=== PATIENT | female | born 1945 ===

== ENCOUNTER → 2016-08-22 | Outpatient (CLI) | payer OTHER ==
[~2016-08-22] VITALS: Ht 154.9 cm; Wt 63.0 kg
[~2016-08-22] MED LIST: ASPIR 8181 MG PO; HYDROCHLOROTHIA25 M2 PO; KLOR-CON 1010 MEQ PO; NEXIUM40 MG PO; TOPROL XL25 MG PO; VITAMIN D1000 UNI1 PO
--- NOTE | ~2016-08-22 | S ---
[facility] [place] [address] SURGICAL PATH RPT PROCEDURE Name: ODALYS LYN Room #: REG ZAKIA Fernando.Michael.#: [id number] Admission: 08/22/16 Date of : 47 Discharge: Report #: [id number] Path Case #: [id number] PATHOLOGY REPORT COLLECTION DATE: 08/22/2016 RECEIVED DATE: 08/22/2016 SUBMITTING PHYS: Dr. Shun Barker OTHER PHYS: SPECIMEN(S) RECEIVED: A.Transverse colon polyp * * * * * * * * * * * * FINAL DIAGNOSIS: Polyp, transverse colon polyp, endoscopic biopsy: - Minute hyperplastic polyp along with a lymphoid aggregate. - Negative for dysplasia or malignancy. (IUV:chandni; 08/24/2016) PATHOLOGIST: Deisy Leonard M.D. REPORT ELECTRONICALLY SIGNED BY: Deisy Leonard M.D. DATE/TIME: 08/24/2016 15:24 * * * * * * * * * * * * GROSS PATHOLOGY: Received in formalin labeled "Odalys Lyn, transverse colon polyp," are 3 segments of walker soft tissue measuring 0.8 x 0.2 x 0.2 cm in aggregate dimensions and ranging from 0.1 to 0.4 cm in maximum dimension. The specimen is submitted entirely in cassette A1. (NICOLÁS; 08/23/2016) CLINICAL HISTORY: Diverticula, polyp, screening INITIAL CPT CODE(S): A; 40190 Professional services performed by [facility] at [facility] [address] [place] [address] Technical services performed by [facility] at [address] [place] [id number]. [facility] [address] [place] [address] SURGICAL PATH RPT PROCEDURE Name: ODALYS LYN Room #: REG MARTIN Jiang#: [id number] Admission: 08/22/16 Date of : 47 Discharge: Report #: [id number] Path Case #: [id number] [facility] [address] PHONE: [phone] DIRECTOR: Mark Ramirez M.D. * * * END OF REPORT * * *
== END | disposition home or self-care (01) ==
LOC: GI 08-02 08:28
DX: Z12.11 Encounter for screening for malignant neoplasm of colon (principal); D12.3 Benign neoplasm of transverse colon; K57.30 Diverticulosis of large intestine without perforation or abscess without bleeding; Z87.891 Personal history of nicotine dependence; I10 Essential (primary) hypertension; Z85.3 Personal history of malignant neoplasm of breast; K21.9 Gastro-esophageal reflux disease without esophagitis; Z98.890 Other specified postprocedural states
CPT/HCPCS: 62110; 62900

== ENCOUNTER → 2018-09-24 | Outpatient (CLI) | payer OTHER ==
[~2018-09-24] VITALS: Ht 154.9 cm; Wt 61.2 kg
--- NOTE | 2018-09-26 09:07 | PATH ---
[facility] [address] [place] [address] PATHOLOGY RPT PROCEDURE Name: ODALYS THOMASON Room #: REG MARTIN M.R.#: [id number] Admission: 09/24/18 Date of : 47 Discharge: Report #: [id number] Path Case #: [id number] [facility] Accession Number: [id number] . 01 Material submitted: . colon - BX POLYP AT TRANSVERSE COLON X2. Modifiers: transverse . 01 Clinical history: . Pre-OP DX: Hx polyps, family HX colon cancer Post-OP DX: Colon polyps, diverticulosis . 02 Diagnosis: Transverse colon, biopsy: - Tubular adenoma. - Negative for high grade dysplasia. . (MAP:mm; 09/25/2018) QL/09/25/2018 . 02 Electronically signed: . Carlos Eduardo Gentile MD, Pathologist NPI- [id number] . 01 Gross description: . Received in formalin labeled "Odalys Falk, BX polyp at transverse colon x2," are 2 segments of walker soft tissue measuring 0.8 x 0.3 x 0.1 cm in aggregate dimensions and ranging from 0.3 to 0.5 cm in maximum dimension. The specimen is submitted entirely in cassette A1. (TSD; 09/24/2018) TOB/TOB . 02 Pathologist provided ICD-10: D12.3, Z86.010, Z80.0 . 02 CPT . 417028 Specimen Comment: A courtesy copy of this report has been sent to Specimen Comment: [phone], . Specimen Comment: Report sent to / DR BOWERS Performed at: [address] [id number] MD Trav Stein MD Phone: [phone] Performed at: [address] [id number] MD Deisy Leonard MD Phone: [phone]
--- NOTE | 2018-09-27 12:43 | P ---
[facility] [place] [address] PROCEDURE REPORT Name: NORBERTO THOMASON Room #: REG [facility].#: [id number] Admission: 09/24/18 Attend Phys: Shun Black Discharge: Date of : 47 Report #: [id number] THIS REPORT FOR: //name// CC: DELFINO Barker DATE OF SERVICE: 09/24/2018 PROCEDURE PERFORMED: Colonoscopy with biopsies. HISTORY OF PRESENT ILLNESS: The patient is a 72-year-old female with a history of colon polyps, here for routine followup. She also has a family history of colon cancer in her father. She denies any symptoms. DESCRIPTION OF PROCEDURE: The risks and benefits of the procedure were explained to the patient, those risks including but not limited to bleeding, perforation, the risk of sedation. She understood these risks and gave informed consent. Sedation was given using propofol per anesthesia. Next, a digital rectal exam was initially performed, which was normal. Next, using a standard Olympus colonoscope, the scope was placed in the patient's anus and advanced under direct vision to the cecum. The overall prep was good. The cecum and ileocecal valve were normal in appearance. The ascending colon was normal. In the transverse colon, 2-3 mm sessile polyps were noted, both removed with cold forceps, otherwise normal. The descending colon was normal. In the sigmoid colon, a few small scattered diverticula were noted, otherwise normal. The rectal mucosa was normal. On retroflexion, no abnormalities were noted. The scope was then withdrawn and the procedure terminated. The patient tolerated the procedure well. IMPRESSION: 1. Two small colonic polyps. 2. Sigmoid diverticulosis. 3. Otherwise, normal colonoscopy. RECOMMENDATIONS: 1. Await biopsy results. 2. Recommend repeat colonoscopy in 3 years. Thank you for allowing me to participate in her care. <ELECTRONICALLY SIGNED> By: Shun Barker MD 09/27/18 1243 [id number] 0015 Shun Barker MD /nt
== END | disposition home or self-care (01) ==
LOC: GI 06:46
DX: Z12.11 Encounter for screening for malignant neoplasm of colon (principal); Z86.010 Personal history of colon polyps; Z80.0 Family history of malignant neoplasm of digestive organs; D12.3 Benign neoplasm of transverse colon; K57.30 Diverticulosis of large intestine without perforation or abscess without bleeding; I10 Essential (primary) hypertension; K21.9 Gastro-esophageal reflux disease without esophagitis; Z85.3 Personal history of malignant neoplasm of breast; Z87.891 Personal history of nicotine dependence; Z98.890 Other specified postprocedural states; Z96.642 Presence of left artificial hip joint; Z98.41 Cataract extraction status, right eye; Z98.42 Cataract extraction status, left eye; Z79.899 Other long term (current) drug therapy; Z88.8 Allergy status to other drugs, medicaments and biological substances
CPT/HCPCS: 62110; 62900